=== PATIENT | female | born 1980 | race Caucasian/White ===

== ENCOUNTER 2018-08-07 21:31 | Emergency (ER) | payer OTHER ==
[~2018-08-07] VITALS: Ht 157.5 cm; Wt 75.5 kg
[2018-08-07 21:41] VITALS: BP 154/82
== END 2018-08-07 22:28 | disposition left against medical advice (07) ==
LOC: ED 21:31
DX: Z53.21 Procedure and treatment not carried out due to patient leaving prior to being seen by health care provider (principal)